=== PATIENT | male | born 1945 | race Caucasian/White ===

== ENCOUNTER 2023-04-28 10:39 | Day surgery (SDC) | payer MEDICARE ==
[2023-04-24 12:17] VITALS: BMI 28.8
[~2023-04-28 10:39] MED LIST: LACTATED RINGERS 1,000 ML IV SCH
[2023-04-28 11:04] VITALS: TEMP 97.2
[2023-04-28] MEDS ORDERED: PROPOFOL 10 MG/ML 20 ML VIAL IV ONE (11:36)
--- NOTE | 2023-04-28 11:37 | P.GSHP ---
History of Present Illness H&P Date: 04/28/23 Chief Complaint: Abnormal stool test 77-year-old male here for colonoscopy. Last colonoscopy 7-10 years ago. Stool test abnormal. No bowel complaints or rectal bleeding per patient. Past Medical History Past Medical History: Hyperlipidemia, Prostate Disorder Additional Past Medical History / Comment(s): Enlarged prostate. History of Any Multi-Drug Resistant Organisms: None Reported Additional Past Surgical History / Comment(s): Colonoscopy. Past Anesthesia/Blood Transfusion Reactions: No Reported Reaction Past Psychological History: No Psychological Hx Reported Smoking Status: Former smoker Past Alcohol Use History: Occasional Additional Past Alcohol Use History / Comment(s): Quit smoking in 1986. Past Drug Use History: None Reported - Past Family History Father Family Medical History: Cancer Additional Family Medical History / Comment(s): Multiple Myeloma. Medications and Allergies Home Medications Medication Instructions Recorded Confirmed Type Aspirin [Adult Low Dose Aspirin EC] 81 mg PO DAILY 04/24/23 04/28/23 History Atorvastatin [Lipitor] 40 mg PO DAILY 04/24/23 04/28/23 History Multivitamins, Thera [Multivitamin 1 tab PO DAILY 04/24/23 04/28/23 History (formulary)] Allergies Allergy/AdvReac Type Severity Reaction Status Date / Time No Known Allergies Allergy Verified 04/28/23 11:00 Surgical - Exam Vital Signs Temp Pulse Resp BP Pulse Ox 97.2 F L 87 18 169/85 98 04/28/23 10:59 04/28/23 10:59 04/28/23 10:59 04/28/23 10:59 04/28/23 10:59 Physical exam: General: Well-developed, well-nourished HEENT: Normocephalic, sclerae nonicteric Abdomen: Nontender, nondistended Extremities: No edema Neuro: Alert and oriented Assessment and Plan (1) Abnormal stool test Narrative/Plan: Will proceed with colonoscopy at this time. Current Visit: Yes Status: Acute Code(s): R19.5 - OTHER FECAL ABNORMALITIES SNOMED Code(s): 969186693
--- NOTE | 2023-04-28 11:58 | P.PCN ---
Date of Procedure: 04/28/23 Procedure(s) Performed: PREOPERATIVE DIAGNOSIS: Abnormal stool test POSTOPERATIVE DIAGNOSIS: Transverse colon polyp 2, descending colon polyp 2, diverticulosis PROCEDURE: Colonoscopy with snare polypectomy and biopsy ANESTHESIA: MAC SURGEON: Mannie Riggs M.D. SPECIMENS: Polyps ENDOSCOPIC PROCEDURE: The patient was placed on the endoscopy table in the left decubitus position. The Olympus colonoscope was inserted into the anus and passed under direct visualization to the base of the cecum. The appendiceal orifice was visualized. From that point the scope was slowly withdrawn inspecting all surfaces carefully. There were no neoplastic inflammatory or polypoid lesions throughout the cecum and ascending colon. In the transverse colon 2 polyps were seen and removed using the cold biopsy forceps. In the descending colon 2 polyps were slightly larger removed using the snare with cautery technique. The sigmoid and rectum appeared normal. There was mild left-sided diverticulosis. Digital rectal examination was normal. The patient was taken to the recovery room in stable condition per anesthesia guidelines. RECOMMENDATIONS: Await biopsy results. Repeat colonoscopy 5 years
[2023-04-28 12:04] VITALS: PULSE 72; RESP 16
[2023-04-28 12:19] VITALS: BP 147/80
== END 2023-04-28 12:35 | disposition home or self-care (01) ==
LOC: ORWHC2ENDO 10:39
PROVIDERS: ATTEND Surgery
DX: D12.3 Benign neoplasm of transverse colon (principal); D12.4 Benign neoplasm of descending colon; K57.30 Diverticulosis of large intestine without perforation or abscess without bleeding; E78.5 Hyperlipidemia, unspecified; N40.0 Benign prostatic hyperplasia without lower urinary tract symptoms; Z87.891 Personal history of nicotine dependence; F10.90 Alcohol use, unspecified, uncomplicated; Z79.82 Long term (current) use of aspirin; Z79.899 Other long term (current) drug therapy
CPT/HCPCS: 88305; 45380; 45385; J2704